=== PATIENT | female | born 1980 | race Caucasian/White ===

== ENCOUNTER → 2019-01-04 10:23 | Outpatient (CLI) | payer SELFPAY ==
--- NOTE | 2019-01-04 12:09 | NEURO ---
NCS and/or EMG Patient Report Ordering Doctor: Juanita Silverman DATE OF SERVICE: 01/04/19 Vida Isaacs is a 38-year-old female presents for electrodiagnostic testing of the right upper limb. She has pain in the right side of the neck radiating into the right arm with associated numbness and weakness. Electrodiagnostic findings: The right median motor nerve demonstrates normal distal latency, amplitude and conduction velocity. Normal right ulnar motor response. Normal right ulnar and median F waves. Right median sensory latency is borderline prolonged. Normal right ulnar and radial sensory responses. Needle EMG testing demonstrates 1+ fibrillation potentials in the right pronator teres, right triceps, right flexor carpi ulnaris and right lower cervical paraspinals. Decreased recruitment pattern noted in the right triceps. Motor unit action potentials were normal amplitude and duration. Electrodiagnostic assessment: This is an abnormal study in the right upper limb. 1. Electrodiagnostic findings demonstrate acute right-sided C7 radiculopathy. Consider clinical correlation with cervical spine imaging. If there are any further questions, please do not hesitate to contact me.
== END ==
PROVIDERS: Family Provider Family Medicine; PCP Family Medicine
DX: M50.13 Cervical disc disorder with radiculopathy, cervicothoracic region (principal)
CPT/HCPCS: 95886; 95909